=== PATIENT | male | born 1985 | race African-American/Black ===

== ENCOUNTER 2016-04-02 12:43 | Emergency (ER) | payer MEDICARE, MEDICAID ==
--- NOTE | 2016-04-02 13:04 | ER Document Report ---
ED Medical Screen (RME) - General Stated Complaint: CONGESTION,COUGH,ABDOMINAL PAIN Time seen by provider: 13:02 Mode of Arrival: Ambulatory Information source: Patient Notes: 30-year-old male complaining of congestion night sweats cough for 3 days. Brown mucus. HX HIV viral load undetectable. TRAVEL OUTSIDE OF THE [place] IN LAST 30 DAYS: No - Related Data Allergies/Adverse Reactions: Sulfa (Sulfonamide Antibiotics) Allergy (Verified 07/23/15 10:16) Past Medical History - Social History Family history: Reviewed & Not Pertinent Pulmonary Medical History: Reports: Hx Bronchitis, Hx Pneumonia - chronic Malignancy Medical History: Reports Hx Lymphoma Infectious Medical History: Reports: Hx HIV - 2004 - Immunizations Immunizations up to date: Yes Hx Diphtheria, Pertussis, Tetanus Vaccination: Yes Physical Exam - Vital signs Vitals: Temp Pulse Resp BP Pulse Ox 98.2 F 101 H 16 132/83 H 95 04/02/16 13:00 04/02/16 13:00 04/02/16 13:00 04/02/16 13:00 04/02/16 13:00 Course - Vital Signs Vital signs: Temp Pulse Resp BP Pulse Ox 98.2 F 101 H 16 132/83 H 95 04/02/16 13:00 04/02/16 13:00 04/02/16 13:00 04/02/16 13:00 04/02/16 13:00
--- NOTE | 2016-04-02 13:25 | ER Document Report ---
ED Respiratory Problem - General Chief Complaint: Cold Symptoms Stated Complaint: CONGESTION,COUGH,ABDOMINAL PAIN Time seen by provider: 13:23 Mode of Arrival: Ambulatory Information source: Patient TRAVEL OUTSIDE OF THE [place] IN LAST 30 DAYS: No - HPI Patient complains to provider of: Cough - pt with cough productive of brown sputum for the past 2 days. Denies fever, sore throat. Good po intake - Related Data Allergies/Adverse Reactions: Sulfa (Sulfonamide Antibiotics) Allergy (Verified 07/23/15 10:16) Past Medical History - General Information source: Patient - Social History Smoking Status: Former Smoker Cigarette use (# per day): No Chew tobacco use (# tins/day): No Smoking Education Provided: No Family History: Reviewed & Not Pertinent Pulmonary Medical History: Reports: Hx Bronchitis, Hx Pneumonia - chronic Renal/ Medical History: Denies: Hx Peritoneal Dialysis Malignancy Medical History: Reports Hx Lymphoma Infectious Medical History: Reports: Hx HIV - 2004 - Immunizations Immunizations up to date: Yes Hx Diphtheria, Pertussis, Tetanus Vaccination: Yes Hx Pneumococcal Vaccination: 07/21/12 Review of Systems - Review of Systems Constitutional: No symptoms reported EENT: No symptoms reported Cardiovascular: No symptoms reported Respiratory: See HPI, Cough Gastrointestinal: No symptoms reported Musculoskeletal: No symptoms reported Neurological/Psychological: No symptoms reported Physical Exam - Vital signs Vitals: Temp Pulse Resp BP Pulse Ox 98.2 F 101 H 16 132/83 H 95 04/02/16 13:00 04/02/16 13:00 04/02/16 13:00 04/02/16 13:00 04/02/16 13:00 - General General appearance: Appears well In distress: None - HEENT Mouth/Lips: Normal Mucous membranes: Normal Pharynx: Normal Neck: Normal - Respiratory Respiratory status: No respiratory distress Chest status: Nontender Breath sounds: Normal - Cardiovascular Rhythm: Regular Heart sounds: Normal auscultation - Abdominal Inspection: Normal Tenderness: Nontender Course - Vital Signs Vital signs: Temp Pulse Resp BP Pulse Ox 98.2 F 104 H 16 132/83 H 95 04/02/16 13:01 04/02/16 13:01 04/02/16 13:01 04/02/16 13:01 04/02/16 13:01 - Diagnostic Test Radiology reviewed: Reports reviewed - nad Discharge - Discharge Clinical Impression: Bronchitis Condition: Stable Disposition: HOME, SELF-CARE Additional Instructions: rest, take meds as prescribed, return if worse Prescriptions: Azithromycin [Zithromax] 600 mg PO DAILY #7 tablet Referrals: JEM ARREAGA MD [ACTIVE STAFF] - Follow up as needed
[2016-04-02 14:40] VITALS: BP 124/77
== END 2016-04-02 14:40 | disposition home or self-care (01) ==
LOC: ER 12:43
DX: J40 Bronchitis, not specified as acute or chronic (principal); R10.9 Unspecified abdominal pain; Z21 Asymptomatic human immunodeficiency virus [HIV] infection status; Z88.2 Allergy status to sulfonamides; Z87.891 Personal history of nicotine dependence
CPT/HCPCS: 71020; 99283

== ENCOUNTER 2016-06-22 10:33 | Emergency (ER) | payer MEDICARE, MEDICAID ==
--- NOTE | 2016-06-22 11:15 | ER Document Report ---
ED Neck/Back Problem - General Chief Complaint: Back Pain Stated Complaint: BACK PAIN Notes: 30 yo male c/o right sided low back pain x 1 day. reports he has been moving boxes and furniture the past few day, felt a pull in his right low back today while moving. no radiculopathy, no paresthesias, no bowel/bladder change. no fever. no recent tattoo or spinal injections. TRAVEL OUTSIDE OF THE [place] IN LAST 30 DAYS: No - HPI Patient complains to provider of: Pain Onset: Yesterday Where: Home Onset: Sudden Timing: Constant Quality of pain: Burning Pain Level: 5 Context: Bending, Lifting Recent injury: Possibly Associated symptoms: None. denies: Motor loss, Numbness/tingling, Radiation to leg, Sensory loss, Unable to urinate Exacerbated by: Movement of trunk Relieved by: Nothing Similar symptoms previously: No Recently seen / treated by doctor: No - Related Data Allergies/Adverse Reactions: Sulfa (Sulfonamide Antibiotics) Allergy (Verified 06/22/16 10:37) Past Medical History - General Information source: Patient - Social History Smoking Status: Never Smoker Frequency of alcohol use: None Drug Abuse: None Lives with: Family Family History: Reviewed & Not Pertinent Patient has suicidal ideation: No Patient has homicidal ideation: No - Medical History Medical History: Other - peripheral neuropathy Pulmonary Medical History: Reports: Hx Bronchitis, Hx Pneumonia - chronic Renal/ Medical History: Denies: Hx Peritoneal Dialysis Malignancy Medical History: Reports Hx Lymphoma Infectious Medical History: Reports: Hx HIV - 2004 - Immunizations Immunizations up to date: Yes Hx Diphtheria, Pertussis, Tetanus Vaccination: Yes Hx Pneumococcal Vaccination: 07/21/12 Review of Systems - Review of Systems Constitutional: No symptoms reported EENT: No symptoms reported Cardiovascular: No symptoms reported Respiratory: No symptoms reported Gastrointestinal: No symptoms reported Genitourinary: No symptoms reported Male Genitourinary: No symptoms reported Musculoskeletal: See HPI, Back pain Skin: No symptoms reported Hematologic/Lymphatic: No symptoms reported Neurological/Psychological: No symptoms reported Physical Exam - Vital signs Vitals: Temp Pulse Resp BP Pulse Ox 98.2 F 87 18 110/84 100 06/22/16 10:37 06/22/16 10:37 06/22/16 10:37 06/22/16 10:37 06/22/16 10:37 Interpretation: Normal - General General appearance: Appears well, Alert - HEENT Head: Normocephalic, Atraumatic Eyes: Normal Pupils: PERRL - Respiratory Respiratory status: No respiratory distress Chest status: Nontender Breath sounds: Normal Chest palpation: Normal - Cardiovascular Rhythm: Regular Heart sounds: Normal auscultation Murmur: No - Abdominal Inspection: Normal Distension: No distension Bowel sounds: Normal Tenderness: Nontender Organomegaly: No organomegaly - Back Back: Tender - right latissimus tenderness. no vertebral tenderness. no SI tenderness - Extremities General upper extremity: Normal inspection, Nontender, Normal color, Normal ROM , Normal temperature General lower extremity: Normal inspection, Nontender, Normal color, Normal ROM , Normal temperature, Normal weight bearing. No: Hannah's sign - Neurological Neuro grossly intact: Yes Cognition: Normal Orientation: AAOx4 Apnda Coma Scale Eye Opening: Spontaneous [place] Coma Scale Verbal: Oriented [place] Coma Scale Motor: Obeys Commands Panda Coma Scale Total: 15 Speech: Normal Motor strength normal: LUE, RUE, LLE, RLE Sensory: Normal - Psychological Associated symptoms: Normal affect, Normal mood - Skin Skin Temperature: Warm Skin Moisture: Dry Skin Color: Normal Course - Vital Signs Vital signs: Temp Pulse Resp BP Pulse Ox 98.2 F 87 18 110/84 100 06/22/16 10:37 06/22/16 10:37 06/22/16 10:37 06/22/16 10:37 06/22/16 10:37 Discharge - Discharge Clinical Impression: Right low back pain Condition: Stable Disposition: HOME, SELF-CARE Instructions: Muscle Strain ([facility]), Low Back Pain ([facility]), Ice Packs ([facility]), Warm Packs ([facility]), Muscle Relaxers ([facility]), Ibuprofen (General) ([facility]) Additional Instructions: Take meds as prescribed follow up with primary care if pain persists Prescriptions: Ibuprofen [Motrin 800 Mg Tablet] 800 mg PO Q6H #20 tablet Methocarbamol [Robaxin 500 Mg Tablet] 1,000 mg PO Q6 #30 tablet
[2016-06-22 11:59] VITALS: BP 119/77
== END 2016-06-22 12:15 | disposition home or self-care (01) ==
LOC: ER 10:33
DX: M54.5 Low back pain (principal); Z88.2 Allergy status to sulfonamides; Z21 Asymptomatic human immunodeficiency virus [HIV] infection status; Z85.72 Personal history of non-Hodgkin lymphomas
CPT/HCPCS: 99283

== ENCOUNTER 2016-07-22 12:42 | Emergency (ER) | payer MEDICARE, MEDICAID ==
--- NOTE | 2016-07-22 13:28 | ER Document Report ---
ED Medical Screen (RME) - General Chief Complaint: Headache Stated Complaint: HEADACHE Time Seen by Provider: 07/22/16 13:21 Mode of Arrival: Ambulatory Information source: Patient TRAVEL OUTSIDE OF THE [place] IN LAST 30 DAYS: No - HPI Onset: Other - 3 DAYS Onset/Duration: Gradual - UNSURE, NOTED UPON AWAKENING, Constant, Persistent Quality of pain: Dull Associated Symptoms: denies: Fever, Nausea Exacerbated by: Denies Relieved by: Denies Similar symptoms previously: No Recently seen / treated by doctor: Yes - [facility]OUTINE [facility] - Related Data Allergies/Adverse Reactions: Sulfa (Sulfonamide Antibiotics) Allergy (Verified 07/22/16 12:44) Past Medical History - General Information source: Patient - Social History Family history: Reviewed & Not Pertinent - Past Medical History Cardiac Medical History: Reports: None Pulmonary Medical History: Reports: Hx Bronchitis, Hx Pneumonia - chronic Renal/ Medical History: Denies: Hx Peritoneal Dialysis Malignancy Medical History: Reports Hx Lymphoma Infectious Medical History: Reports: Hx HIV - 2003 - Immunizations Immunizations up to date: Yes Hx Diphtheria, Pertussis, Tetanus Vaccination: Yes Review of Systems - Review of Systems Constitutional: Weakness. denies: Chills, Fever EENT: No symptoms reported Cardiovascular: No symptoms reported. denies: Chest pain Respiratory: No symptoms reported. denies: Cough Neurological/Psychological: See HPI Physical Exam - Vital signs Vitals: Temp Pulse Resp BP Pulse Ox 98.9 F 80 18 119/85 99 07/22/16 12:44 07/22/16 12:44 07/22/16 12:44 07/22/16 12:44 07/22/16 12:44 Interpretation: Normal. No: Tachycardic, Tachypneic, Febrile - General General appearance: Appears well, Alert In distress: None - HEENT Head: Normocephalic Eyes: Normal Neck: Supple - Respiratory Respiratory status: No respiratory distress - Cardiovascular Rhythm: Regular - Abdominal Inspection: Normal Distension: No distension - Extremities General upper extremity: Normal inspection General lower extremity: Normal inspection - Neurological Neuro grossly intact: Yes - Psychological Associated symptoms: Normal affect, Normal mood Course - Vital Signs Vital signs: Temp Pulse Resp BP Pulse Ox 98.9 F 80 18 119/85 99 07/22/16 12:44 07/22/16 12:44 07/22/16 12:44 07/22/16 12:44 07/22/16 12:44
[2016-07-22] MEDS ORDERED: DIPHENHYDRAMINE HCL 50 MG/ML VIAL IV ONE (14:08)
[2016-07-22] MEDS ORDERED: PROCHLORPERAZINE EDISYLATE INJ 10 MG/2 ML VIAL IV ONE (14:08)
--- NOTE | 2016-07-22 14:17 | ER Document Report ---
ED General - General Chief Complaint: Headache Stated Complaint: HEADACHE Time Seen by Provider: 07/22/16 13:21 Mode of Arrival: Ambulatory Information source: Patient Notes: 30-year-old male history of HIV presents with complaints of headache of 3 day duration. Patient notes he is on antiretrovirals and has an undetectable load. Patient denies any fevers or chills nausea vomiting or diarrhea. Notes it is a generalized headache associated with sensation of weakness TRAVEL OUTSIDE OF THE [place] IN LAST 30 DAYS: No - HPI Onset: Other - 3 Day duration Onset/Duration: Persistent Quality of pain: Achy Severity: Mild Pain Level: 1 Associated symptoms: Headache Exacerbated by: Denies Relieved by: Denies Similar symptoms previously: No Recently seen / treated by doctor: No - Related Data Allergies/Adverse Reactions: Sulfa (Sulfonamide Antibiotics) Allergy (Verified 07/22/16 12:44) Past Medical History - General Information source: Patient - Social History Smoking Status: Never Smoker Cigarette use (# per day): No Chew tobacco use (# tins/day): No Smoking Education Provided: No Family History: Reviewed & Not Pertinent Patient has suicidal ideation: No Patient has homicidal ideation: No - Past Medical History Cardiac Medical History: Reports: None Pulmonary Medical History: Reports: Hx Bronchitis, Hx Pneumonia - chronic Renal/ Medical History: Denies: Hx Peritoneal Dialysis Malignancy Medical History: Reports Hx Lymphoma Infectious Medical History: Reports: Hx HIV - 2004 - Immunizations Immunizations up to date: Yes Hx Diphtheria, Pertussis, Tetanus Vaccination: Yes Hx Pneumococcal Vaccination: 07/21/12 Review of Systems - Review of Systems Notes: REVIEW OF SYSTEMS: CONSTITUTIONAL : Denies fever, chills, or sweats. Denies recent illness. EENT: Denies eye, ear, throat, or mouth pain or symptoms. Denies nasal or sinus congestion or discharge. Denies throat, tongue, or mouth swelling or difficulty swallowing. CARDIOVASCULAR: Denies chest pain. Denies palpitations or racing or irregular heart beat. Denies ankle edema. RESPIRATORY: Denies cough, cold, or chest congestion. Denies shortness of breath, difficulty breathing, or wheezing. GASTROINTESTINAL: Denies abdominal pain or distention. Denies nausea, vomiting , or diarrhea. Denies blood in vomitus, stools, or per rectum. Denies black, tarry stools. Denies constipation. GENITOURINARY: Denies difficulty urinating, painful urination, burning, frequency, blood in urine, or discharge. MUSCULOSKELETAL: Denies back or neck pain or stiffness. Denies joint pain or swelling. SKIN: Denies rash, lesions or sores. HEMATOLOGIC : Denies easy bruising or bleeding. LYMPHATIC: Denies swollen, enlarged glands. NEUROLOGICAL: Admits to headache weakness PSYCHIATRIC: Denies anxiety or stress. Denies depression, suicidal ideation, or homicidal ideation. ALL OTHER SYSTEMS REVIEWED AND NEGATIVE. Dictation was performed using [employer] voice recognition software PHYSICAL EXAMINATION: GENERAL: Well-appearing, well-nourished and in no acute distress. HEAD: Atraumatic, normocephalic. EYES: Pupils equal round and reactive to light, extraocular movements intact, sclera anicteric, conjunctiva are normal. ENT: Nares patent, oropharynx clear without exudates. Moist mucous membranes. NECK: Normal range of motion, supple without lymphadenopathy LUNGS: Breath sounds clear to auscultation bilaterally and equal. No wheezes rales or rhonchi. HEART: Regular rate and rhythm without murmurs ABDOMEN: Soft, nontender, nondistended abdomen. No guarding, no rebound. No masses appreciated. Musculoskeletal: Normal range of motion, no pitting or edema. No cyanosis. NEUROLOGICAL: Cranial nerves grossly intact. Normal speech, normal gait. Normal sensory, motor exams finger to nose [id number] are normal PSYCH: Normal mood, normal affect. SKIN: Warm, Dry, normal turgor, no rashes or lesions noted. Physical Exam - Vital signs Vitals: Temp Pulse Resp BP Pulse Ox 98.9 F 80 18 119/85 99 07/22/16 12:44 07/22/16 12:44 07/22/16 12:44 07/22/16 12:44 07/22/16 12:44 Course - Re-evaluation Re-evalutation: 07/22/16 15:03 Physical examination notes no significant abnormality, given that patient is on antiretrovirals and is afebrile I have very low suspicion for life-threatening issues however a CT of the head with and without contrast has been ordered 07/22/16 16:48 CT head with and without contrast noted no significant abnormality, patient has no significant improvement with treatment. I will have him follow-up with a neurologist at this time patient's complaints do not severe life-threatening nor do they appear to be secondary to the HIV After performing a Medical Screening Examination, I estimate there is LOW risk for ACUTE GLAUCOMA, TEMPORAL ARTERITIS, MENINGITIS, INCRANIAL HEMORRHAGE, or ISCHEMIC STROKE thus I consider the discharge disposition reasonable. I have reevaluated this patient multiple times and no significant life threatening changes are noted. The patient and I have discussed the diagnosis and risks, and we agree with discharging home with close follow-up with the understanding that symptoms and presentations can change. We also discussed returning to the Emergency Department immediately if new or worsening symptoms occur. We have discussed the symptoms which are most concerning (e.g., changing or worsening symptoms, new numbness or weakness, vomiting, fever) that necessitate immediate return. - Vital Signs Vital signs: Temp Pulse Resp BP Pulse Ox 98.9 F 80 18 119/85 99 07/22/16 12:44 07/22/16 12:44 07/22/16 12:44 07/22/16 12:44 07/22/16 12:44 - Laboratory Result Diagrams: 07/22/16 13:50 07/22/16 13:50 Laboratory results interpreted by me: 07/22/16 07/22/16 13:50 13:50 Hgb 13.3 L MCH 25.7 L MCHC 31.9 L RDW 14.5 H Calcium 10.3 H Total Protein 8.8 H - Diagnostic Test Radiology reviewed: Image reviewed, Reports reviewed - No acute abnormality Discharge - Discharge Clinical Impression: HIV (human immunodeficiency virus infection) Headache Qualifiers: Headache type: unspecified Headache chronicity pattern: acute headache Intractability: not intractable Qualified Code(s): R51 - Headache Condition: Stable Disposition: HOME, SELF-CARE Instructions: Headache ([facility]) Referrals: NENITA HERNANDEZ MD [ACTIVE STAFF] - Follow up tomorrow
[2016-07-22 14:20] LABS: ABSOLUTE BASOPHILS # (AUTO) 0.1 10^3/uL (0.0-0.2); ABSOLUTE LYMPHOCYTES (AUTO) 2.2 10^3/uL (0.5-4.7); ABSOLUTE MONOCYTES (AUTO) 0.4 10^3/uL (0.1-1.4); ABSOLUTE NEUT (AUTO) 2.8 10^3/uL (1.7-8.2); BASOPHILS % (AUTO) 1.2 % (0-2); EOSINOPHILS % (AUTO) 0.2 % (0-6); HEMATOCRIT 41.8 % (37.9-51.0); HEMOGLOBIN 13.3 g/dL (13.5-17.0); HGB HCT DIFFERENCE -1.9; LYMPHOCYTES % (AUTO) 40.5 % (13-45); MEAN CORPUSCULAR HEMOGLOBIN 25.7 pg (27.0-33.4); MEAN CORPUSCULAR HGB CONC 31.9 g/dL (32.0-36.0); MEAN CORPUSCULAR VOLUME 81 fl (80-97); MONOCYTES % (AUTO) 7.8 % (3-13); RED BLOOD COUNT 5.19 10^6/uL (4.35-5.55); RED CELL DISTRIBUTION WIDTH 14.5 % (11.5-14.0); SEGMENTED NEUTROPHILS % (AUTO) 50.3 % (42-78); WHITE BLOOD COUNT 5.5 10^3/uL (4.0-10.5)
[2016-07-22 14:32] LABS: APPEARANCE,URINE CLEAR; BILIRUBIN,URINE NEGATIVE (NEGATIVE); GLUCOSE, URINE NEGATIVE (NEGATIVE); KETONES,URINE NEGATIVE (NEGATIVE); LEUKOCYTE ESTERASE,URINE NEGATIVE (NEGATIVE); NITRITE,URINE NEGATIVE (NEGATIVE); PROTEIN,URINE NEGATIVE (NEGATIVE); URINE SPECIFIC GRAVITY 1.027; UROBILINOGEN,URINE NEGATIVE mg/dL (<2.0)
[2016-07-22 15:59] LABS: ALANINE AMINOTRANSFERASE 39 U/L (21-72); ALBUMIN 4.7 g/dL (3.5-5.0); ALKALINE PHOSPHATASE 89 U/L (38-126); ANION GAP 14 (5-19); ASPARTATE AMINO TRANSFERASE 41 U/L (17-59); BILIRUBIN,DIRECT 0.4 mg/dL (0.0-0.4); BILIRUBIN,TOTAL 0.4 mg/dL (0.2-1.3); BLOOD UREA NITROGEN 12 mg/dL (7-20); CALCIUM 10.3 mg/dL (8.4-10.2); CARBON DIOXIDE 28 mmol/L (22-30); CHLORIDE 102 mmol/L (98-107); CREATININE RESULT 1.08 mg/dL (0.52-1.25); GLUCOSE 95 mg/dL (75-110); SODIUM 143.9 mmol/L (137-145); TOTAL PROTEIN 8.8 g/dL (6.3-8.2)
[2016-07-22 16:00] LABS: POTASSIUM 4.9 mmol/L (3.6-5.0)
--- NOTE | 2016-07-22 16:33 | RADIOLOGY REPORT (SQ) ---
EXAM DESCRIPTION: CT HEAD COMBO COMPLETED DATE/TIME: 07/22/2016 4:24 pm REASON FOR STUDY: hx hiv, headache COMPARISON: 07/02/2011 TECHNIQUE: Axial images acquired through the brain without and with intravenous contrast. Images re viewed with bone, brain and subdural windows. Images stored on PACS. All CT scanners at this facility use dose modulation, iterative reconstruction, and/or weight based d osing when appropriate to reduce radiation dose to as low as reasonably achievable (ALARA). [facility]: Dose Right [facility]: CareDose [facility]: Dose Right [facility]: Teradose 4D [facility]: Akdemia CONTRAST TYPE AND DOSE: 100mL Isovue 370- low osmolar. RENAL FUNCTION: None required. The patient is less than 50 years old. RADIATION DOSE: 193.83 mGy. LIMITATIONS: None. FINDINGS: VENTRICLES: Normal size and contour. CEREBRUM: No masses. No hemorrhage. No midline shift. Normal corral/white matter differentiation. No ev idence for acute infarction. No enhancing lesions. CEREBELLUM: No masses. No hemorrhage. No alteration of density. No evidence for acute infarction. No enhancing lesions. EXTRA-AXIAL SPACES: No fluid collections. No enhancing lesions. ORBITS AND GLOBE: No intra- or extraconal masses. Normal contour of globe without masses. CALVARIUM: No fracture. PARANASAL SINUSES: No fluid or mucosal thickening. SOFT TISSUES: No mass or hematoma. OTHER: No other significant finding. IMPRESSION: NORMAL BRAIN CT WITHOUT AND WITH CONTRAST. TECHNICAL DOCUMENTATION: JOB ID: [id number] Quality ID # [id number]: Final reports with documentation of one or more dose reduction techniques (e.g., Au tomated exposure control, adjustment of the mA and/or kV according to patient size, use of iterative reconstruction technique) 2010 [employer]- All Rights Reserved
[2016-07-22 17:45] VITALS: BP 139/90
== END 2016-07-22 17:25 | disposition home or self-care (01) ==
LOC: ER 12:42
DX: B20 Human immunodeficiency virus [HIV] disease (principal); R51 Headache
CPT/HCPCS: 99284; 96374; 96375; 36415; 85025; 80053; 81001; 70470; J1200; J0780

== ENCOUNTER 2018-06-04 15:51 | Emergency (ER) | payer MEDICARE, MEDICAID ==
[2018-06-04] MEDS ORDERED: NORMAL SALINE 1000 ML 1,000 ML IV ONE (15:54)
[2018-06-04] MEDS ORDERED: ONDANSETRON HCL INJ/PF 4 MG/2 ML SDV IV ONE (15:54)
--- NOTE | 2018-06-04 15:58 | ER Document Report ---
ED Medical Screen (RME) - General Stated Complaint: NAUSEA,LOOSE STOOL,DIZZINESS Time Seen by Provider: 06/04/18 15:52 Primary Care Provider: JAKE MULLIGAN MD [Primary Care Provider] - Follow up as needed TRAVEL OUTSIDE OF THE [place] IN LAST 30 DAYS: No - HPI Patient complains to provider of: N/V Notes: 06/04/18 15:55 PT WITH N/V SINCE YESTERDAY. ABDOMINAL PAIN YESTERDAY. NO PAIN NOW. FEELS DIZZY AND GENERALLY WEAK. EXAM NO DISTRESS. NON-TOXIC. NO ABDO TENDERNESS. PLAN: LABS, IV, FLUIDS, MEDS. An initial examination was made on the patient as part of the triage process, and it was determined a more comprehensive evaluation was necessary. Initial labs were ordered and patient was transferred to another provider in the ED who assumed care and finished evaluation and plan. - Related Data Allergies/Adverse Reactions: Sulfa (Sulfonamide Antibiotics) Allergy (Verified 05/29/17 13:24) Past Medical History - Social History Family history: Reviewed & Not Pertinent Pulmonary Medical History: Reports: Hx Bronchitis, Hx Pneumonia - chronic Renal/ Medical History: Denies: Hx Peritoneal Dialysis Malignancy Medical History: Reports Hx Lymphoma Infectious Medical History: Reports: Hx HIV - 2004 - Immunizations Immunizations up to date: Yes Hx Diphtheria, Pertussis, Tetanus Vaccination: Yes Doctor's Discharge - Discharge Referrals: JAKE MULLIGAN MD [Primary Care Provider] - Follow up as needed
[2018-06-04] MEDS ORDERED: ONDANSETRON HCL INJ/PF 4 MG/2 ML SDV ONE (18:22)
[2018-06-04 19:02] LABS: APPEARANCE,URINE CLEAR; BILIRUBIN,URINE NEGATIVE (NEGATIVE); COLOR,URINE YELLOW; GLUCOSE, URINE NEGATIVE (NEGATIVE); KETONES,URINE TRACE mg/dL (NEGATIVE); LEUKOCYTE ESTERASE,URINE NEGATIVE (NEGATIVE); NITRITE,URINE NEGATIVE (NEGATIVE); PROTEIN,URINE 30 mg/dL (NEGATIVE); URINE SPECIFIC GRAVITY 1.025
[2018-06-04 19:03] LABS: ABSOLUTE LYMPHOCYTES (AUTO) 2.6 10^3/uL (0.5-4.7); ABSOLUTE MONOCYTES (AUTO) 0.5 10^3/uL (0.1-1.4); ABSOLUTE NEUT (AUTO) 2.7 10^3/uL (1.7-8.2); BASOPHILS % (AUTO) 0.7 % (0-2); EOSINOPHILS % (AUTO) 0.4 % (0-6); HEMATOCRIT 43.3 % (37.9-51.0); HEMOGLOBIN 14.3 g/dL (13.5-17.0); MEAN CORPUSCULAR HEMOGLOBIN 25.6 pg (27.0-33.4); MEAN CORPUSCULAR VOLUME 78 fl (80-97); MONOCYTES % (AUTO) 8.6 % (3-13); PLATELET COUNT 228 10^3/uL (150-450); RED BLOOD COUNT 5.58 10^6/uL (4.35-5.55); RED CELL DISTRIBUTION WIDTH 15.1 % (11.5-14.0); SEGMENTED NEUTROPHILS % (AUTO) 46.3 % (42-78); TOTAL CELLS COUNTED % (AUTO) 100 %; WHITE BLOOD COUNT 5.9 10^3/uL (4.0-10.5)
[2018-06-04 19:16] LABS: ALANINE AMINOTRANSFERASE 40 U/L (21-72); ALBUMIN 5.2 g/dL (3.5-5.0); ALKALINE PHOSPHATASE 104 U/L (38-126); ANION GAP 10 (5-19); ASPARTATE AMINO TRANSFERASE 46 U/L (17-59); BILIRUBIN,DIRECT 0.3 mg/dL (0.0-0.4); BILIRUBIN,TOTAL 0.6 mg/dL (0.2-1.3); BLOOD UREA NITROGEN 10 mg/dL (7-20); CALCIUM 10.8 mg/dL (8.4-10.2); CARBON DIOXIDE 27 mmol/L (22-30); CHLORIDE 102 mmol/L (98-107); GLUCOSE 101 mg/dL (75-110); LIPASE 99.8 U/L (23-300); POTASSIUM 3.9 mmol/L (3.6-5.0); SODIUM 139.3 mmol/L (137-145); TOTAL PROTEIN 9.6 g/dL (6.3-8.2)
[2018-06-04] MEDS ORDERED: METOCLOPRAMIDE HCL INJ/PF 10 MG/2 ML SDV IV ONE (21:39)
[2018-06-04] MEDS ORDERED: ONDANSETRON ODT 4 MG TAB (6 TAB/ER DISP) PO PRN (21:40)
--- NOTE | 2018-06-04 21:40 | ER Document Report ---
ED General - General Chief Complaint: Nausea/Vomiting/Diarrhea Stated Complaint: NAUSEA,LOOSE STOOL,DIZZINESS Time Seen by Provider: 06/04/18 15:52 Primary Care Provider: JAKE MULLIGAN MD [Primary Care Provider] - Follow up tomorrow Notes: Patient is a 32-year-old male with a past medical history of HIV who presents with 2-3 days of nausea, vomiting and diarrhea. States that his symptoms started gradually, have been moderate to severe in nature, constant since onset. Nothing is been noted to improve or worsening symptoms. States that he has difficulty tolerating even fluids secondary to nausea. Denies a history of similar symptoms in the past. No known sick contacts. Has not seen his primary care physician regarding today's concerns. Denies any abdominal pain, fever, headache but states that he has felt very lightheaded particularly when going from a sitting to standing position. TRAVEL OUTSIDE OF THE [place] IN LAST 30 DAYS: No - Related Data Allergies/Adverse Reactions: Sulfa (Sulfonamide Antibiotics) Allergy (Verified 05/29/17 13:24) Past Medical History - General Information source: Patient - Social History Smoking Status: Current Every Day Smoker Frequency of alcohol use: None Drug Abuse: None Lives with: Spouse/Significant other Family History: Reviewed & Not Pertinent Patient has suicidal ideation: No Patient has homicidal ideation: No Pulmonary Medical History: Reports: Hx Bronchitis, Hx Pneumonia - chronic Renal/ Medical History: Denies: Hx Peritoneal Dialysis Malignancy Medical History: Reports Hx Lymphoma Infectious Medical History: Reports: Hx HIV - 2004 - Immunizations Immunizations up to date: Yes Hx Diphtheria, Pertussis, Tetanus Vaccination: Yes Hx Pneumococcal Vaccination: 07/21/12 Review of Systems - Review of Systems Notes: Constitutional: Negative for fever. HENT: Negative for sore throat. Eyes: Negative for visual changes. Cardiovascular: Negative for chest pain. Positive for lightheadedness Respiratory: Negative for shortness of breath. Gastrointestinal: Positive for vomiting and diarrhea Genitourinary: Negative for dysuria. Musculoskeletal: Negative for back pain. Skin: Negative for rash. Neurological: Negative for headaches, weakness or numbness. 10 point ROS negative except as marked above and in HPI. Physical Exam - Vital signs Vitals: Temp Pulse Resp BP Pulse Ox 98.8 F 81 16 136/91 H 96 06/04/18 16:15 06/04/18 16:15 06/04/18 16:15 06/04/18 16:15 06/04/18 16:15 Interpretation: Normal Notes: PHYSICAL EXAMINATION: GENERAL: Well-appearing, well-nourished and in no acute distress. HEAD: Atraumatic, normocephalic. EYES: Pupils equal round and reactive to light, extraocular movements intact, sclera anicteric, conjunctiva are normal. ENT: nares patent, oropharynx clear without exudates. Moderately dry mucous membranes. NECK: Normal range of motion, supple without lymphadenopathy LUNGS: Breath sounds clear to auscultation bilaterally and equal. No wheezes rales or rhonchi. HEART: Regular rate and rhythm without murmurs ABDOMEN: Soft, nontender, normoactive bowel sounds. No guarding, no rebound. No masses appreciated. EXTREMITIES: Normal range of motion, no pitting or edema. No cyanosis. NEUROLOGICAL: No focal neurological deficits. Moves all extremities spontaneously and on command. PSYCH: Normal mood, normal affect. SKIN: Warm, Dry, normal turgor, no rashes or lesions noted. Course - Re-evaluation Re-evalutation: 06/04/18 21:38 Presentation of an overall well-appearing patient in no acute distress with complaints of nausea, vomiting, diarrhea. Has also had some associated lightheadedness and near syncope likely secondary to dehydration. Patient has no abdominal tenderness on exam and specifically no tenderness in the RLQ, LLQ, RUQ. Mildly dehydrated on exam. Able to tolerate oral intake here in the [facility] department. Low clinical suspicion for any acute life-threatening etiology based on exam and history including acute cholecystitis, SBO, appendicitis, nephrolithiasis, or pylonephritis. CMP without evidence of acute hepatitis or significant dehydration. At this time will discharge with return precautions and follow-up recommendations. Verbal discharge instructions given a the bedside and opportunity for questions given. Medication warnings reviewed. Patient is in agreement with this plan and has verbalized understanding of return precautions and the need for primary care follow-up in the next 24-72 hours. - Vital Signs Vital signs: Temp Pulse Resp BP Pulse Ox 98.8 F 81 16 138/68 H 96 06/04/18 16:15 06/04/18 16:15 06/04/18 16:15 06/04/18 22:25 06/04/18 16:15 - Laboratory Result Diagrams: 06/04/18 18:35 06/04/18 18:35 Laboratory results interpreted by me: 06/04/18 06/04/18 06/04/18 18:35 18:35 18:35 RBC 5.58 H MCV 78 L MCH 25.6 L RDW 15.1 H Calcium 10.8 H Total Protein 9.6 H Albumin 5.2 H Urine Protein 30 H Urine Ketones TRACE H Urine Urobilinogen 2.0 H Discharge - Discharge Clinical Impression: Nausea vomiting and diarrhea, Dehydration, Lightheadedness Condition: Good Disposition: HOME, SELF-CARE Additional Instructions: Your symptoms are likely due to a viral illness and should resolve in the next several days. You can take [id number] loperamide also known as Imodium as needed for diarrhea per box instructions. Continue to stay hydrated with plenty of solution such as Gatorade or Pedialyte. You are being prescribed Zofran to take as needed for nausea and vomiting. Please return if you develop severe abdominal pain, pass out, become unable to tolerate any oral fluids for 12 more hours, or any other symptoms that are concerning to you. Referrals: JAKE MULLIGAN MD [Primary Care Provider] - Follow up tomorrow
[2018-06-04 22:26] VITALS: BP 138/68
== END 2018-06-04 22:26 | disposition home or self-care (01) ==
LOC: ER 15:51
DX: R11.2 Nausea with vomiting, unspecified (principal); R19.7 Diarrhea, unspecified; R42 Dizziness and giddiness; E86.0 Dehydration; B20 Human immunodeficiency virus [HIV] disease; F17.200 Nicotine dependence, unspecified, uncomplicated
CPT/HCPCS: 99284; 96361; 96374; 96375; 36415; 83690; 85025; 80053; 81001; J2765; J2405; J7030; A9270

== ENCOUNTER 2018-07-09 22:26 | Emergency (ER) | payer MEDICARE, MEDICAID ==
[2018-07-09] MEDS ORDERED: ACETAMINOPHEN 325 MG TABLET PO ONE (23:13)
--- NOTE | 2018-07-09 23:35 | RADIOLOGY REPORT (SQ) ---
EXAM DESCRIPTION: XR CHEST 2 VIEWS COMPLETED DATE/TME: 07/09/2018 00:00 CLINICAL HISTORY: 32 years, Male, shortness of breath COMPARISON: Multiple priors, most recent from 05/29/2017 NUMBER OF VIEWS: Two TECHNIQUE: Frontal and lateral radiographs were obtained LIMITATIONS: None. FINDINGS: Cardiac and mediastinal contours are normal in appearance. Lungs are clear. No pleural effusion or pneumothorax. IMPRESSION: No acute disease. copyright 2010 [employer]- All Rights Reserved
[2018-07-10] MEDS ORDERED: ACETAMINOPHEN 325 MG TABLET PO ONE (00:09)
--- NOTE | 2018-07-10 00:11 | ER Document Report ---
ED Medical Screen (RME) - General Chief Complaint: Shortness Of Breath Stated Complaint: TROUBLE BREATHING Time Seen by Provider: 07/10/18 00:08 Primary Care Provider: JAKE MULLIGAN MD [Primary Care Provider] - Follow up as needed Notes: 32-year-old male chief complaint of fever, cough, tiredness for the past 3 days or so. He does have a history of pneumonia. He also has a history of HIV, however he states his CD4 counts are excellent and his viral load is undetectable, he has been taking his antivirals. He does have a history of pneumonia. He states he stopped smoking 1 week ago. TRAVEL OUTSIDE OF THE [place] IN LAST 30 DAYS: No - Related Data Allergies/Adverse Reactions: Sulfa (Sulfonamide Antibiotics) Allergy (Verified 05/29/17 13:24) Past Medical History - Social History Family history: Reviewed & Not Pertinent Pulmonary Medical History: Reports: Hx Bronchitis, Hx Pneumonia - chronic Renal/ Medical History: Denies: Hx Peritoneal Dialysis Malignancy Medical History: Reports Hx Lymphoma Infectious Medical History: Reports: Hx HIV - 2003 - Immunizations Immunizations up to date: Yes Hx Diphtheria, Pertussis, Tetanus Vaccination: Yes Physical Exam - Vital signs Vitals: Temp Pulse Resp BP Pulse Ox 103.2 F H 110 H 24 H 119/67 96 07/09/18 22:57 07/09/18 22:57 07/09/18 22:57 07/09/18 22:57 07/09/18 22:57 - Respiratory Respiratory status: No respiratory distress. No: Labored, Tachypnea Breath sounds: Nonproductive cough - Frequent nonproductive cough, few scattered rhonchi, otherwise clear lungs Course - Re-evaluation Re-evalutation: Patient is febrile, however he is not hypoxic, he does have borderline tachycardia but we will treat the fever first. He is nontoxic in appearance. - Vital Signs Vital signs: Temp Pulse Resp BP Pulse Ox 103.2 F H 110 H 24 H 119/67 96 07/09/18 22:57 07/09/18 22:57 07/09/18 22:57 07/09/18 22:57 07/09/18 22:57 Doctor's Discharge - Discharge Referrals: JAKE MULLIGAN MD [Primary Care Provider] - Follow up as needed
[2018-07-10 01:04] LABS: ABSOLUTE EOSINOPHILS # (AUTO) 0.2 10^3/uL (0.0-0.6); ABSOLUTE LYMPHOCYTES (AUTO) 2.1 10^3/uL (0.5-4.7); ABSOLUTE MONOCYTES (AUTO) 0.6 10^3/uL (0.1-1.4); ABSOLUTE NEUT (AUTO) 4.7 10^3/uL (1.7-8.2); BASOPHILS % (AUTO) 0.4 % (0-2); EOSINOPHILS % (AUTO) 3.1 % (0-6); HEMATOCRIT 40.2 % (37.9-51.0); HEMOGLOBIN 12.9 g/dL (13.5-17.0); LYMPHOCYTES % (AUTO) 27.4 % (13-45); MEAN CORPUSCULAR HEMOGLOBIN 24.9 pg (27.0-33.4); MEAN CORPUSCULAR HGB CONC 32.1 g/dL (32.0-36.0); MEAN CORPUSCULAR VOLUME 77 fl (80-97); MONOCYTES % (AUTO) 8.3 % (3-13); PLATELET COUNT 203 10^3/uL (150-450); RED CELL DISTRIBUTION WIDTH 14.8 % (11.5-14.0); SEGMENTED NEUTROPHILS % (AUTO) 60.8 % (42-78); TOTAL CELLS COUNTED % (AUTO) 100 %; WHITE BLOOD COUNT 7.7 10^3/uL (4.0-10.5)
[2018-07-10 01:10] LABS: ALANINE AMINOTRANSFERASE 16 U/L (21-72); ALBUMIN 4.7 g/dL (3.5-5.0); ALKALINE PHOSPHATASE 76 U/L (38-126); ANION GAP 14 (5-19); ASPARTATE AMINO TRANSFERASE 33 U/L (17-59); BILIRUBIN,DIRECT 0.3 mg/dL (0.0-0.4); BILIRUBIN,TOTAL 0.7 mg/dL (0.2-1.3); BLOOD UREA NITROGEN 12 mg/dL (7-20); CALCIUM 9.7 mg/dL (8.4-10.2); CARBON DIOXIDE 24 mmol/L (22-30); CHLORIDE 103 mmol/L (98-107); GLUCOSE 95 mg/dL (75-110); POTASSIUM 4.2 mmol/L (3.6-5.0); TOTAL PROTEIN 8.8 g/dL (6.3-8.2)
[2018-07-10 05:21] VITALS: BP 140/82
--- NOTE | 2018-07-10 05:22 | ER Document Report ---
ED Respiratory Problem - General Chief Complaint: Shortness Of Breath Stated Complaint: TROUBLE BREATHING Time Seen by Provider: 07/10/18 00:08 Primary Care Provider: JAKE MULLIGAN MD [Primary Care Provider] - Follow up as needed TRAVEL OUTSIDE OF THE [place] IN LAST 30 DAYS: No - HPI Notes: Patient is a 32-year-old male with a history of HIV who presents to the emergency department with chief complaint of fever and cough. Patient states that Monday after being out in the sun all day he developed a dry cough states that he was sweating profusely. Patient did go out to the bar the night and drink alcohol. Patient states that since then he has had fatigue, has felt hoar se in his voice, and is felt like his throat was tight. Patient has been able to drink chicken broth and liquids without any difficulty swallowing. Patient states that he did quit smoking 1 week ago. Prior to 1 week he smoked about 1 pack/week. Patient reports that she is a social drinker and denies recreational drug use. Patient states that he has a constant cough and has upper abdominal discomfort with movement and position change. Patient states that this upper abdominal discomfort feels like muscles since he is coughed so much. Patient has reported chills. Has denied vomiting or diarrhea. - Related Data Allergies/Adverse Reactions: Sulfa (Sulfonamide Antibiotics) Allergy (Verified 07/10/18 00:29) Past Medical History - General Information source: Patient - Social History Smoking Status: Former Smoker Frequency of alcohol use: Social Drug Abuse: None Lives with: Friend Family History: Reviewed & Not Pertinent - Past Medical History Cardiac Medical History: Reports: None Pulmonary Medical History: Reports: Hx Bronchitis, Hx Pneumonia - chronic EENT Medical History: Reports: None Neurological Medical History: Reports: None Endocrine Medical History: Reports: None Renal/ Medical History: Reports: None. Denies: Hx Peritoneal Dialysis Malignancy Medical History: Reports Hx Lymphoma GI Medical History: Reports: None Musculoskeletal Medical History: Reports None Skin Medical History: Reports None Psychiatric Medical History: Reports: None Traumatic Medical History: Reports: None Infectious Medical History: Reports: Hx HIV - 2004 Surgical Hx: Negative - Immunizations Immunizations up to date: Yes Hx Diphtheria, Pertussis, Tetanus Vaccination: Yes Hx Pneumococcal Vaccination: 07/21/12 Review of Systems - Review of Systems Constitutional: See HPI EENT: No symptoms reported Cardiovascular: No symptoms reported Respiratory: See HPI Gastrointestinal: See HPI Genitourinary: No symptoms reported Male Genitourinary: No symptoms reported Musculoskeletal: No symptoms reported Skin: No symptoms reported Hematologic/Lymphatic: No symptoms reported Neurological/Psychological: No symptoms reported Physical Exam - Vital signs Vitals: Temp Pulse Resp BP Pulse Ox 103.2 F H 110 H 24 H 119/67 96 07/09/18 22:57 07/09/18 22:57 07/09/18 22:57 07/09/18 22:57 07/09/18 22:57 Notes: Repeat vitals obtained during my assessment, patient temp 99.8, RR 20, O2 100%, and BP 140/82. - Notes Notes: GENERAL: Well-appearing, well-nourished and in no acute distress. HEAD: Atraumatic, normocephalic. EYES: Pupils equal round and reactive to light, extraocular movements intact, sclera anicteric, conjunctiva are normal. ENT: TMs normal, nares patent, oropharynx clear without exudates. Moist mucous membranes. NECK: Normal range of motion, supple without lymphadenopathy or JVD. LUNGS: Breath sounds clear to auscultation bilaterally and equal. No wheezes rales or rhonchi. Intermittent dry cough during assessment. HEART: Regular rate and rhythm without murmurs, rubs or gallops. ABDOMEN: Soft, nontender, normoactive bowel sounds. No guarding, no rebound. No masses appreciated. EXTREMITIES: Normal range of motion, no pitting or edema. No clubbing or cyanosis. NEUROLOGICAL: Cranial nerves II through XII grossly intact. Normal speech, normal gait. PSYCH: Normal mood, normal affect. SKIN: Warm, Dry, normal turgor, no rashes or lesions noted. Course - Re-evaluation Re-evalutation: 07/10/18 05:25 Patient reports that since arriving to the emergency department his cough has subsided. Throughout assessment patient did have intermittent dry cough. His airway is patent. Lungs are clear. The chest x-ray was negative for pneumonia. His fever has improved to 99.8 after receiving Tylenol. Patient's heart rate is 98, oxygen level is 100% on room air. Patient does have a history of HIV and reports that his CD4 counts are excellent and that his load has been undetected. - Vital Signs Vital signs: Temp Pulse Resp BP Pulse Ox 99.8 F 97 20 140/82 H 100 07/10/18 05:10 07/10/18 05:10 07/10/18 05:10 07/10/18 05:10 07/10/18 05:10 - Laboratory Result Diagrams: 07/10/18 00:36 07/10/18 00:36 Laboratory results interpreted by me: 07/10/18 07/10/18 00:36 00:36 Hgb 12.9 L MCV 77 L MCH 24.9 L RDW 14.8 H Creatinine 1.32 H ALT 16 L Total Protein 8.8 H - Diagnostic Test Radiology reviewed: Reports reviewed Discharge - Discharge Clinical Impression: Productive cough Fever Qualifiers: Fever type: unspecified Qualified Code(s): R50.9 - Fever, unspecified HIV (human immunodeficiency virus infection) Qualifiers: HIV symptom status: asymptomatic Qualified Code(s): Z21 - Asymptomatic human immunodeficiency virus [HIV] infection status Condition: Stable Disposition: HOME, SELF-CARE Instructions: Acetaminophen, Fever ([facility]) Additional Instructions: Today you were seen in the emergency department for cough and fever. Your lab work and chest x-ray were unremarkable. At this time it does not appear that you have pneumonia on your x-ray. Due to your past medical history and fever I am placing you on antibiotics for possible early onset pneumonia. We did draw blood cultures, these will result in a few days and you will be contacted if abnormal. Please follow-up with your primary care physician or return to the emergency department if your symptoms worsen to include shortness of breath, throat swelling, chest pain, continued high fever, or any other concerning signs or symptoms. Increase your fluid intake to help prevent dehydration. Fever Fever is the body's reaction to infection. Fever can also occur with illnesses that create fever-producing substances in the body. By itself, fever is not harmful. It helps the body fight invading germs. We are more concerned with: (1) What's causing the fever? (2) How can we keep you more comfortable until the fever goes away? Early in an illness, symptoms are often so vague that a diagnosis can't be made. If the doctor hasn't identified a clear cause for your fever, you will probably develop new symptoms within the next two days. Contact the doctor if you develop severe worsening headache, rash, chest pain, cough with yellow or green sputum, difficulty breathing, abdominal pain, or other new symptoms. There is no reason to treat a fever if you're comfortable. If the fever is causing aches, headache, and fatigue, you can treat it with ibuprofen (Advil, Nuprin, etc) or acetaminophen (Tylenol). Follow the directions on the bottle. Get plenty of liquids (three quarts per day). Rest. Physical work or sports will raise the temperature higher and make you feel much worse. Dress lightly. If you're chilling, this means the temperature is trying to go higher. Ta ke ibuprofen or acetaminophen. When you feel sweaty and "feverish" the temperature is coming down. If the fever doesn't go away within two days or if you become more ill, call the doctor or return at once for re-examination. Prescriptions: Benzonatate [Tessalon Perle 100 mg Capsule] 100 mg PO Q8HP PRN #40 cap PRN Reason: Doxycycline Hyclate 100 mg PO BID 7 Days #14 capsule Referrals: JAKE MULLIGAN MD [Primary Care Provider] - Follow up as needed
== END 2018-07-10 05:45 | disposition home or self-care (01) ==
LOC: ER 22:26
DX: R05 Cough (principal); R50.9 Fever, unspecified; R06.02 Shortness of breath; Z21 Asymptomatic human immunodeficiency virus [HIV] infection status; Z88.2 Allergy status to sulfonamides; F17.210 Nicotine dependence, cigarettes, uncomplicated
CPT/HCPCS: 99283; 36415; 87040; 85025; 80053; 71046; A9270

== ENCOUNTER 2019-04-03 19:50 | Emergency (ER) | payer MEDICARE, MEDICAID ==
[2019-04-03] MEDS ORDERED: ONDANSETRON HCL INJ/PF 4 MG/2 ML SDV IV ONE (20:25)
[2019-04-03] MEDS ORDERED: NORMAL SALINE 1000 ML 1,000 ML IV ONE ×2 (20:25→22:33)
--- NOTE | 2019-04-03 20:27 | ER Document Report ---
ED Medical Screen (RME) - General Chief Complaint: Fever Stated Complaint: NAUSEA/VOMITING/FATIGUED Time Seen by Provider: 04/03/19 20:21 Primary Care Provider: JAKE MULLIGAN MD [Primary Care Provider] - Follow up as needed Mode of Arrival: Wheelchair Information source: Patient Notes: 33-year-old male history of HIV positive, pneumonia, presents emergency departme with complaints of nausea vomiting for 2 days with diarrhea, cough. Patient reports he feels very weak. He is having trouble holding his head up in PIT. Reports he had fever yesterday. He reports last time he had his T-cell count was 4 months ago and it was undetectable. I have greeted and performed a rapid initial assessment of this patient. A comprehensive ED assessment and evaluation of the patient, analysis of test results and completion of the medical decision making process will be conducted by additional ED providers. TRAVEL OUTSIDE OF THE [place] IN LAST 30 DAYS: No - Related Data Allergies/Adverse Reactions: Sulfa (Sulfonamide Antibiotics) Allergy (Verified 04/03/19 20:14) Home Medications: Tivikay Past Medical History - Social History Family history: Reviewed & Not Pertinent Pulmonary Medical History: Reports: Hx Bronchitis, Hx Pneumonia - chronic Renal/ Medical History: Denies: Hx Peritoneal Dialysis Malignancy Medical History: Reports Hx Lymphoma Infectious Medical History: Reports: Hx HIV - 2003 - Immunizations Immunizations up to date: Yes Hx Diphtheria, Pertussis, Tetanus Vaccination: Yes Physical Exam - Vital signs Vitals: Temp Pulse Resp BP Pulse Ox 99.2 F 109 H 22 H 124/80 98 04/03/19 19:58 04/03/19 19:58 04/03/19 19:58 04/03/19 19:58 04/03/19 19:58 Course - Vital Signs Vital signs: Temp Pulse Resp BP Pulse Ox 99.2 F 109 H 22 H 124/80 98 04/03/19 19:58 04/03/19 19:58 04/03/19 19:58 04/03/19 19:58 04/03/19 19:58 Doctor's Discharge - Discharge Referrals: JAKE MULLIGAN MD [Primary Care Provider] - Follow up as needed
--- NOTE | 2019-04-03 21:06 | RADIOLOGY REPORT (SQ) ---
EXAM DESCRIPTION: XR CHEST 2 VIEWS COMPLETED DATE/TME: 04/03/2019 20:25 CLINICAL HISTORY: 33 years, Male, cough history of pneumonia COMPARISON: July 09, 2018 NUMBER OF VIEWS: 2 TECHNIQUE: LIMITATIONS: None. FINDINGS: Cardiomediastinal silhouette is of normal size. Mild interstitial prominence. No airspace consolidation. No effusion. No pneumothorax. Visualized bones are unremarkable IMPRESSION: No acute process. No adverse change from prior copyright 2010 [employer]- All Rights Reserved
[2019-04-03 21:42] LABS: ABSOLUTE LYMPHOCYTES (AUTO) 3.6 10^3/uL (0.5-4.7); ABSOLUTE MONOCYTES (AUTO) 0.8 10^3/uL (0.1-1.4); ABSOLUTE NEUT (AUTO) 5.4 10^3/uL (1.7-8.2); BASOPHILS % (AUTO) 0.3 % (0-2); HEMATOCRIT 41.2 % (37.9-51.0); HEMOGLOBIN 13.6 g/dL (13.5-17.0); LYMPHOCYTES % (AUTO) 36.7 % (13-45); MEAN CORPUSCULAR HEMOGLOBIN 24.9 pg (27.0-33.4); MEAN CORPUSCULAR HGB CONC 33.1 g/dL (32.0-36.0); MEAN CORPUSCULAR VOLUME 75 fl (80-97); MONOCYTES % (AUTO) 8.4 % (3-13); PLATELET COUNT 133 10^3/uL (150-450); RED BLOOD COUNT 5.46 10^6/uL (4.35-5.55); RED CELL DISTRIBUTION WIDTH 15.5 % (11.5-14.0); SEGMENTED NEUTROPHILS % (AUTO) 54.6 % (42-78); TOTAL CELLS COUNTED % (AUTO) 100 %; WHITE BLOOD COUNT 9.9 10^3/uL (4.0-10.5)
[2019-04-03 21:48] LABS: ALBUMIN 5.1 g/dL (3.5-5.0); ALKALINE PHOSPHATASE 100 U/L (38-126); ANION GAP 16 (5-19); ASPARTATE AMINO TRANSFERASE 71 U/L (17-59); BILIRUBIN,DIRECT 0.4 mg/dL (0.0-0.4); BILIRUBIN,TOTAL 0.6 mg/dL (0.2-1.3); BLOOD UREA NITROGEN 16 mg/dL (7-20); CALCIUM 9.8 mg/dL (8.4-10.2); CARBON DIOXIDE 21 mmol/L (22-30); CHLORIDE 97 mmol/L (98-107); GLUCOSE 105 mg/dL (75-110); TOTAL PROTEIN 10.9 g/dL (6.3-8.2)
[2019-04-03 21:48] LABS: APPEARANCE,URINE SLIGHTLY-CLOUDY; BILIRUBIN,URINE NEGATIVE (NEGATIVE); COLOR,URINE AMBER; GLUCOSE, URINE NEGATIVE (NEGATIVE); KETONES,URINE TRACE mg/dL (NEGATIVE); LEUKOCYTE ESTERASE,URINE NEGATIVE (NEGATIVE); NITRITE,URINE NEGATIVE (NEGATIVE); PROTEIN,URINE >=500 mg/dL (NEGATIVE); URINE SPECIFIC GRAVITY 1.031; UROBILINOGEN,URINE NEGATIVE mg/dL (<2.0)
[2019-04-03 21:50] LABS: A TYPE INFLUENZA AG NEGATIVE (NEGATIVE); B INFLUENZA AG NEGATIVE (NEGATIVE)
[2019-04-03] MEDS ORDERED: METOCLOPRAMIDE HCL INJ/PF 10 MG/2 ML SDV IV ONE (22:32)
--- NOTE | 2019-04-03 22:59 | ER Document Report ---
ED General - General Chief Complaint: Fever Stated Complaint: NAUSEA/VOMITING/FATIGUED Time Seen by Provider: 04/03/19 20:21 Primary Care Provider: JAKE MULLIGAN MD [Primary Care Provider] - Follow up as needed Mode of Arrival: Wheelchair Information source: Patient TRAVEL OUTSIDE OF THE [place] IN LAST 30 DAYS: No - HPI Onset: Yesterday Onset/Duration: Gradual Quality of pain: Achy Severity: Moderate Pain Level: 1 Associated symptoms: Body/muscle aches, Nonproductive cough, Diarrhea, Fever, Nausea, Vomiting, Weakness Exacerbated by: Coughing, Food Relieved by: Denies Similar symptoms previously: No Recently seen / treated by doctor: No Notes: 33 year old male with a history of HIV whose viral load has been undetectable for years here for 2 days of nausea and vomiting and 1 day of clear diarrhea with chills and low grade fevers. The patient says he was recently at a green party where children were present and he was told one of them had the Flu. The patient says yesterday he had severe nausea and vomiting but today he has severe diarrhea. The patient says he is unable to keep much of anything down and everything he does keep down seems to go right through him. The patient says he initially had a cough and congestion but the cough has nearly subsided. The patient says his sinus congestion seems to be only right sided on his face. - Related Data Allergies/Adverse Reactions: Sulfa (Sulfonamide Antibiotics) Allergy (Verified 04/03/19 20:14) Home Medications: Tivikay Past Medical History - General Information source: Patient - Social History Smoking Status: Current Every Day Smoker Frequency of alcohol use: None Drug Abuse: None Lives with: Alone Family History: Reviewed & Not Pertinent Patient has suicidal ideation: No Patient has homicidal ideation: No Pulmonary Medical History: Reports: Hx Bronchitis, Hx Pneumonia - chronic Renal/ Medical History: Denies: Hx Peritoneal Dialysis Malignancy Medical History: Reports Hx Lymphoma Infectious Medical History: Reports: Hx HIV - 2004 - Immunizations Immunizations up to date: Yes Hx Diphtheria, Pertussis, Tetanus Vaccination: Yes Hx Pneumococcal Vaccination: 07/21/12 Review of Systems - Review of Systems Constitutional: Fever, Weakness EENT: Nose congestion, Sinus pressure - right sided, Throat pain Respiratory: Cough Gastrointestinal: Diarrhea, Nausea, Vomiting Genitourinary: No symptoms reported Male Genitourinary: No symptoms reported Musculoskeletal: Other - body aches Skin: No symptoms reported Hematologic/Lymphatic: No symptoms reported Neurological/Psychological: No symptoms reported -: Yes All other systems reviewed and negative Physical Exam - Vital signs Vitals: Temp Pulse Resp BP Pulse Ox 99.2 F 109 H 22 H 124/80 98 04/03/19 19:58 04/03/19 19:58 04/03/19 19:58 04/03/19 19:58 04/03/19 19:58 - Notes Notes: GENERAL: Well-appearing, well-nourished and in no acute distress. HEAD: Atraumatic, normocephalic. EYES: Pupils equal round and reactive to light, extraocular movements intact, sclera anicteric, conjunctiva are normal. ENT: Mild tenderness over right frontal and maxillary sinuses. Nares patent, oropharynx with erythema but no exudates. Moist mucous membranes. NECK: Normal range of motion, supple without lymphadenopathy or JVD. LUNGS: Breath sounds clear to auscultation bilaterally and equal. No wheezes rales or rhonchi. HEART: Regular rate and rhythm without murmurs, rubs or gallops. ABDOMEN: Soft, nontender, normoactive bowel sounds. No guarding, no rebound. No masses appreciated. EXTREMITIES: Normal range of motion, no pitting or edema. No clubbing or cyanosis. NEUROLOGICAL: Cranial nerves II through XII grossly intact. Normal speech, normal gait. PSYCH: Normal mood, normal affect. SKIN: Warm, Dry, normal turgor, no rashes or lesions noted. Course - Re-evaluation Re-evalutation: 04/03/19 23:55 The patient is here for viral like symptoms (cough, congestion, right sided sinus pressure, nausea, vomiting, diarrhea). The patient has a history of HIV but his viral load has apparently been undetectable for years now. Patient tr eated in the ER with fluids, Zofran, Reglan and he felt better. Patient DCed with scripts for Zofran, Lamotil and Augmentin (for his unilateral sinus pressure if this does not go away). Patient understands he likely has a viral syndrome given all his symptoms but he was given Augmentin and told to use the wait and see method of resolution of his unilateral sinus pressure and fevers - Vital Signs Vital signs: Temp Pulse Resp BP Pulse Ox 99.2 F 109 H 22 H 124/80 98 04/03/19 19:58 04/03/19 19:58 04/03/19 19:58 04/03/19 19:58 04/03/19 19:58 - Laboratory Result Diagrams: 04/03/19 21:00 04/03/19 21:00 Laboratory results interpreted by me: 04/03/19 04/03/19 04/03/19 21:00 21:00 21:20 MCV 75 L MCH 24.9 L RDW 15.5 H Plt Count 133 L Sodium 134.2 L Chloride 97 L Carbon Dioxide 21 L Creatinine 1.53 H Est GFR (MDRD) Non-Af 52 L AST 71 H Total Protein 10.9 H Albumin 5.1 H Urine Protein >=500 H Urine Ketones TRACE H - Diagnostic Test Radiology reviewed: Image reviewed, Reports reviewed Discharge - Discharge Clinical Impression: Viral syndrome, Nausea vomiting and diarrhea Condition: Stable Disposition: HOME, SELF-CARE Instructions: Viral Syndrome ([facility]), Diarrhea, Nonspecific ([facility]), Vomiting ([facility]) Additional Instructions: Drink plenty of fluids in the days to come. Use Zofran for nausea and use Lomotil for diarrhea. If you continue to have right sided facial/sinus pressure and fevers, fill the prescription for Augmentin (antibiotic) and take that as prescribed. Follow up with your primary care doctor. Prescriptions: Diphenoxylate HCl/Atrop Sulf [Lomotil 2.5 mg Tablet] 1 tab PO Q6HP PRN #15 tablet PRN Reason: Amoxicillin/Potassium Clav [Augmentin 875-125 Tablet] 1 tab PO BID #14 tab Ondansetron [Zofran Odt 4 mg Tablet] 1 tab PO Q8H PRN #10 tab.rapdis PRN Reason: For Nausea/Vomiting Referrals: JAKE MULLIGAN MD [Primary Care Provider] - Follow up as needed
[2019-04-04 00:24] VITALS: BP 122/73
== END 2019-04-04 00:31 | disposition home or self-care (01) ==
LOC: ER 19:50
DX: B34.9 Viral infection, unspecified (principal); R11.2 Nausea with vomiting, unspecified; R19.7 Diarrhea, unspecified; R50.9 Fever, unspecified; R53.83 Other fatigue; R53.1 Weakness; B20 Human immunodeficiency virus [HIV] disease; F17.200 Nicotine dependence, unspecified, uncomplicated; Z88.2 Allergy status to sulfonamides
CPT/HCPCS: 36415; 71046; 80053; 81001; 82962; 85025; 87040; 87070; 87804; 87880; 96361; 96374; 96375; 99283; J2405; J2765; J7030